=== PATIENT | female | born 1950 | race Caucasian/White ===

== ENCOUNTER 2017-01-10 06:10 | Day surgery (SDC) | payer MEDICARE ==
[2017-01-09 08:31] VITALS: BMI 22.8
[~2017-01-10 06:10] MED LIST: ALPRAZolam 0.25 MG TAB PO PRN; ALPRAZolam 0.5 MG TAB PO PRN; ASPIRIN 325 MG TAB PO STA; ATORVASTATIN 80 MG TAB PO STA; NITROGLYCERIN SL TABS 0.4 MG TAB SUBLINGUAL PRN; SODIUM CHLORIDE 0.9% 1,000 ML in EMPTY BAG 1 BAG IV ONE
[2017-01-10 07:15] LABS: Glucose,Whole Blood 161 mg/dL (75-99)
[2017-01-10] MEDS ORDERED: fentaNYL (PF) 50 MCG/ML 2 ML AMP IV ONE (07:27)
[2017-01-10] MEDS ORDERED: diphenhydrAMINE 50 MG/ML 1 ML VIAL IVP ONE (07:27)
[2017-01-10] MEDS ORDERED: LIDOCAINE 2% INJ 20 MG/ML SQ ONE (07:28)
[2017-01-10] MEDS ORDERED: LIDOCAINE 2% INJ 20 MG/ML (20 ML MDV) ONE (07:28)
[2017-01-10] MEDS: VERAPAMIL SYRINGE (5 MG/10 ML) INTRAARTER ONE ×2 (07:31→07:43)
[2017-01-10 07:35] LABS: Basophils # (A) 0.1 k/uL (0-0.2); Basophils % (A) 1 %; CH 32.3; CHCM 33.7; Eosinophils # (A) 0.2 k/uL (0-0.7); Eosinophils % (A) 1 %; HDW 2.09; HGB 13.7 gm/dL (11.4-16.0); Luc # (Auto) 0.17; Luc % (Auto) 1; Lymphocytes # (A) 1.6 k/uL (1.0-4.8); Lymphocytes % (A) 13 %; MCH 31.3 pg (25.0-35.0); MCHC 32.6 g/dL (31.0-37.0); MCV 96.1 fL (80.0-100.0); Mean Platelet Volume 9.3; Monocytes # (A) 0.8 k/uL (0-1.0); Monocytes % (A) 6 %; Neutrophils # (A) 9.8 k/uL (1.3-7.7); Neutrophils % (A) 78 %; RBC 4.37 m/uL (3.80-5.40); RDW 12.8 % (11.5-15.5); WBC 12.7 k/uL (3.8-10.6); WBC (Perox) 12.49
[2017-01-10] MEDS ORDERED: MIDAZOLAM 2 MG/2 ML VIAL IV ONE (07:41)
[2017-01-10 07:43] LABS: Anion Gap 13 mmol/L; Blood Urea Nitrogen 24 mg/dL (7-17); Calcium 10.1 mg/dL (8.4-10.2); Carbon Dioxide 23 mmol/L (22-30); Chloride 106 mmol/L (98-107); Glucose 156 mg/dL (74-99); Non-African American GFR(MDRD) >60 (>60 ml/min/1.73 sqM); Potassium 3.9 mmol/L (3.5-5.1); Sodium 142 mmol/L (137-145)
[2017-01-10] MEDS ORDERED: BIVALIRUDIN BOLUS 250 MG/50 ML IV ONE (07:50)
[2017-01-10] MEDS ORDERED: BIVALIRUDIN 250 MG in SODIUM CHLORIDE 0.9% 50 ML IV ONE (07:52)
[2017-01-10] MEDS ORDERED: CLOPIDOGREL 75 MG TAB PO ONE (07:56)
[2017-01-10] MEDS ORDERED: NITROGLYCERIN 1000MCG/10ML SYRINGE INTRACORON ONE (08:13)
[2017-01-10] MEDS ORDERED: IOHEXOL 350 MG/ML 125ML BOTTLE INJ ONE (08:15)
[2017-01-10] MEDS ORDERED: MAG HYDROX/AL HYDROX/SIMETH 30 ML CUP PO PRN (08:27)
[2017-01-10] MEDS ORDERED: ATROPINE SULFATE 0.1 MG/ML 10ML SYRINGE IV PRN (08:27)
[2017-01-10] MEDS ORDERED: NITROGLYCERIN SL TABS 0.4 MG TAB SUBLINGUAL PRN (08:27)
[2017-01-10] MEDS ORDERED: RX INFO: IV CONTRAST WAS GIVEN 1 EACH MISC MISCELLANE PRN (08:27)
[2017-01-10] MEDS ORDERED: ZOLPIDEM 5 MG TAB PO PRN (08:27)
[2017-01-10] MEDS ORDERED: FLUTICASONE 50MCG/SPRAY NASAL 16GM EA NOSTRIL PRN (08:28)
[2017-01-10] MEDS ORDERED: LORATADINE 10 MG TAB PO PRN (08:28)
[2017-01-10] MEDS ORDERED: SODIUM CHLORIDE 0.9% 1,000 ML IV SCH (08:30)
[2017-01-10 08:51] LABS: Glucose,Whole Blood 154 mg/dL (75-99)
--- NOTE | 2017-01-10 08:51 | CC ---
DATE OF SERVICE: Mrs. Muñoz is a 66-year-old female with known history of hypertension, hyperlipidemia, chronic tobacco use, and diabetes mellitus, who has been complaining of some dyspnea on exertion, underwent a myocardial perfusion imaging that revealed an inferior wall defect and mildly impaired left ventricular systolic function. In view of that, recommendation made regarding cardiac catheterization. The procedure as well as risks and complications were discussed with the patient who is in full understanding and agreement. PROCEDURE: Patient was brought to the [facility] in fasting semi-sedated state after receiving fentanyl and Benadryl and achieving moderate conscious sedated state, a 6 [place] Citizen sheath was introduced in the right radial artery. Selective right and left coronary angiography was performed using 5 [place] Citizen 3.5 Bend, right Filiberto catheter. Multiple views of the coronary artery including hemiaxial views were obtained. Following that, a 5 [place] Citizen tight pigtail catheter was introduced into the left ventricle in a 30 degree PEPE view of the left ventricle was obtained. Following that, the catheter was removed. Images were reviewed. Of note, patient received 3000 units of intravenous heparin as well as intra-arterial verapamil. FINDINGS: FLUOROSCOPY: There is calcification involving all the coronary arteries. LEFT MAIN: This is a large-size vessel bifurcating into the left circumflex, left anterior descending artery. Left main coronary artery is without any obstructive coronary artery disease. LEFT ANTERIOR DESCENDING ARTERY: This is a large-size vessel bifurcating, it tapers down in the distal third. The proximal segment of the LAD had mild intimal disease of 10% to 20% at the take off of the first septal race car driver. There is an eccentric 50% plaque. The rest of the vessel has mild intimal disease without any evidence of high-grade stenosis. LEFT CIRCUMFLEX: This is a nondominant vessel, giving rise to 3 obtuse marginal branch. The left circumflex has mild intimal disease in the obtuse marginal branch of 20% to 30% without any evidence of high-grade stenosis. RIGHT CORONARY ARTERY: This is a large dominant vessel, bifurcating distally into PDA and posterolateral segment and branches. The right PDA reaches toward the inferoapical wall. The right coronary artery is calcified proximally, has an area of stenosis up to 70% and a long segment. The rest of the vessel has mild intimal disease up to 20% to 30% without any evidence of high-grade stenosis. LEFT VENTRICULOGRAM: Left ventriculogram was performed in 30 degree PEPE view and revealed normal left ventricular size and systolic function. Ejection fraction is 60%. There was no significant mitral regurgitation, evidence of abdominal aortic aneurysm was noted. HEMODYNAMICS: There was no gradient across the aortic valve. The left ventricular end-diastolic pressure was 12 mmHg. CONCLUSION: 1. Calcified coronary arteries. 2. Significant disease in the proximal right coronary artery. 3. Mild disease in the left anterior descending artery and mild disease in the left circumflex. 4. Normal ventricular size and systolic function with evidence of abdominal aortic aneurysm. RECOMMENDATION: In view of finding anatomy, I have recommended proceeding with angioplasty and stenting of the right coronary artery. The procedure as well as risks and complications were discussed with the patient who is in full understanding and agreement.
--- NOTE | 2017-01-10 08:59 | PTCA ---
DATE OF SERVICE: Mrs. Muñoz is a 66-year-old female with known history of hypertension, hyperlipidemia, and diabetes mellitus as well as chronic tobacco use, who had evidence of inferior wall defect with a very poor exercise tolerance. In view of that, she underwent cardiac catheterization, was found to have calcified proximal right coronary artery with significant obstructive disease and based on this findings, recommendation made regarding angioplasty and stenting. The procedure as well as the risks and complications were discussed with the patient who is in full understanding and agreement. PROCEDURE: A 6 [place] 3.5 Bend right FR4 guiding catheter introduced into the system. After cannulating the left coronary ostium, a 0.014 balanced medium weight J-wire was advanced across the lesion, positioned distally. Then a 3.5 x 18 mm Xience Alpine stent was deployed, post dilated at 16 atmospheres. Following that, the balloon was removed and a 4.0 x 8 mm Xience Alpine stent was deployed proximal to the first one and post-dilated at 14 atmospheres. After the last inflation, after appropriate wait, the balloon and the guidewire were removed back into the guiding catheter. Images were obtained and repeated. Those images revealed successful stenting. At that point the guiding catheter, the balloon and the guidewire were removed. The sheath was removed. Hemostasis was obtained with deployment of a TR band. There was no immediate complication. Patient is returned to her room in stable condition. Of note, the patient received Angiomax per protocol as well as oral loading dose of clopidogrel. She had throat discomfort and EKG changes with the inflation that resolved at the end of the procedure. The duration of the procedure at 52 minutes. RESULT: Successful stenting of a long segment of the proximal right coronary artery with reduction in stenosis from 70% to 0%. RECOMMENDATION: Patient will be continued on aspirin, Plavix, beta gentry, Krish inhibitor and statin. The importance of dual antiplatelet treatment was discussed with the patient and her family and they are in full understanding and agreement. MICHELLE
[2017-01-10] MEDS ORDERED: LISINOPRIL 20 MG TAB PO SCH (09:00)
[2017-01-10] MEDS: METOPROLOL SUCCINATE (ER) 25 MG TAB.ER.24H PO SCH (10:21)
--- NOTE | 2017-01-10 10:56 | US ---
EXAMINATION TYPE: US duplex aorta DATE OF EXAM: 01/10/2017 10:37 AM COMPARISON: NONE CLINICAL HISTORY: aaa. Pt had heart cath, possible AAA seen EXAM MEASUREMENTS: Abdominal Aorta: Proximal: 2.6 x 2.0 cm Mid: 1.8 x 1.8 cm Distal: 2.3 x 2.8 cm Bifurcation: FRANKY: 1.2 x 1.2 cm OLLIE: 1.1 x 1.4 cm Aorta visualized and does not measure >3cm, however there appears to be "bulging" at the distal porti on greatest measurement= 2.8 cm IMPRESSION: Ectasia and atheromatous change distal abdominal aorta without distinct aneurysm.
[2017-01-10] MEDS: CHLORTHALIDONE 25 MG TAB PO SCH (11:15)
[2017-01-10] MEDS ORDERED: ACETAMINOPHEN TAB 325 MG TAB ONE (12:23)
[2017-01-10] MEDS ORDERED: ACETAMINOPHEN TAB 325 MG TAB PO PRN (12:24)
[2017-01-10] MEDS ORDERED: ASPIRIN 81 MG CHEW PO SCH (17:00)
[2017-01-10] MEDS ORDERED: ATORVASTATIN 40 MG TAB PO SCH (17:00)
[2017-01-10 17:01] LABS: Glucose,Whole Blood 116 mg/dL (75-99)
[2017-01-10] MEDS: MULTIVITAMINS, THERA 1 EACH TAB PO SCH (17:16)
[2017-01-10] MEDS: PANTOPRAZOLE 40 MG TABLET PO SCH (17:16)
[2017-01-10 21:07] LABS: Glucose,Whole Blood 137 mg/dL (75-99)
[2017-01-11] MEDS ORDERED: LEVOTHYROXINE 50 MCG TAB PO SCH (06:30)
[2017-01-11 06:33] LABS: Glucose,Whole Blood 138 mg/dL (75-99)
[2017-01-11] MEDS: PANTOPRAZOLE 40 MG TABLET PO SCH (06:50)
[2017-01-11 07:50] LABS: Anion Gap 11 mmol/L; Blood Urea Nitrogen 16 mg/dL (7-17); Carbon Dioxide 25 mmol/L (22-30); Chloride 103 mmol/L (98-107); Glucose 128 mg/dL (74-99); Non-African American GFR(MDRD) >60 (>60 ml/min/1.73 sqM); Potassium 3.8 mmol/L (3.5-5.1); Sodium 139 mmol/L (137-145)
[2017-01-11] MEDS: CHLORTHALIDONE 25 MG TAB PO SCH (08:27)
[2017-01-11] MEDS: MULTIVITAMINS, THERA 1 EACH TAB PO SCH (08:28)
[2017-01-11] MEDS: METOPROLOL SUCCINATE (ER) 25 MG TAB.ER.24H PO SCH (08:28)
[2017-01-11 08:33] VITALS: BP 150/7; PULSE 84; RESP 16; TEMP 97.1
[2017-01-11] MEDS ORDERED: ASPIRIN 81 MG CHEW PO SCH (09:00)
[2017-01-11] MEDS ORDERED: cloNIDine HCL 0.1 MG TAB PO SCH (09:00)
[2017-01-11] MEDS ORDERED: LISINOPRIL 20 MG TAB PO SCH (09:00)
[2017-01-11] MEDS ORDERED: ATORVASTATIN 40 MG TAB PO SCH (09:00)
[2017-01-11] MEDS ORDERED: amLODIPine 10 MG TAB PO SCH (09:00)
[2017-01-11] MEDS ORDERED: CLOPIDOGREL 75 MG TAB PO SCH (09:00)
--- NOTE | 2017-01-11 09:14 | PN ---
Mrs. Muñoz is a 66-year-old female with a history of hypertension, hyperlipidemia, chronic tobacco use, who presented with abnormal myocardial perfusion imaging, underwent cardiac catheterization, was found to have significant stenosis involving the proximal right coronary artery, underwent stenting of that vessel. She is doing well this morning. She is denying any chest pain. Her breathing has been stable. She denies any dizziness or palpitation. She denies any nausea. She continues to be on aspirin once a day, Lipitor 40 mg daily, chlorthalidone 25 mg daily, Plavix 75 mg daily, lisinopril 40 mg daily, metoprolol succinate 25 mg daily, Protonix, amlodipine 10 mg daily and clonidine 0.1 mg at bedtime. PHYSICAL EXAMINATION: Blood pressure running in the 120s to 150s with the heart rate in the 80s, afebrile. LUNGS: Clear. HEART: Regular rate and rhythm. S1 and S2, no S3, with systolic murmur at the base. No diastolic murmur. ABDOMEN: Soft, nontender. EXTREMITIES: No edema. Right radial pulse intact. Lab data revealed BUN and creatinine are 16 and 0.55. IMPRESSION: 1. Status post stenting of the right coronary artery. 2. Hypertension. 3. Hyperlipidemia. 4. Chronic tobacco use. 5. Diabetes mellitus. RECOMMENDATIONS: Patient will be discharged home today and followed as an outpatient.
[2017-01-11] MEDS ORDERED: FERROUS SULFATE 325 MG TAB PO SCH (12:00)
== END 2017-01-11 10:50 | disposition home or self-care (01) ==
LOC: CATHCVL 06:10 → 6SEL 08:18 → CATHCVL 01-11 10:50
PROVIDERS: ATTEND Internal Medicine Interventional Cardiology
DX: I25.10 Atherosclerotic heart disease of native coronary artery without angina pectoris (principal); I77.811 Abdominal aortic ectasia; R94.39 Abnormal result of other cardiovascular function study; E78.2 Mixed hyperlipidemia; I10 Essential (primary) hypertension; E11.9 Type 2 diabetes mellitus without complications; R00.2 Palpitations; F17.210 Nicotine dependence, cigarettes, uncomplicated; E78.00 Pure hypercholesterolemia, unspecified; Z79.84 Long term (current) use of oral hypoglycemic drugs; Z79.82 Long term (current) use of aspirin; Z79.51 Long term (current) use of inhaled steroids; Z79.899 Other long term (current) drug therapy; Z88.2 Allergy status to sulfonamides
CPT/HCPCS: 93458; 85347; 80048 ×2; 85025; 93979; 99152; 99153 ×2; C9600; C1769 ×2; C1894; C1887; C1874; J2001; J2250; J1200; J3010; J0583; J1644; Q9967

== ENCOUNTER → 2018-07-24 | Day surgery (SDC) | payer MEDICARE ==
[2018-07-17 11:13] VITALS: BMI 26.5
[~2018-07-24] MED LIST changes: +ACETAMINOPHEN TAB 325 MG TAB PO PRN; +ACETAMINOPHN PO SCH; -ALPRAZolam 0.5 MG TAB PO PRN; +ASPIRIN-ACET-CAFF 250-250-65MG 1 EACH TAB PO PRN; +ATORVASTATIN 20 MG TAB PO SCH; -ATORVASTATIN 80 MG TAB PO STA; +CARVEDILOL 12.5 MG TAB PO SCH; +CLOPIDOGREL 75 MG TAB PO SCH; +FLUTICASONE 50MCG/SPRAY NASAL 16GM EA NOSTRIL PRN; +FOLIC PO SCH; +GUAIFEN PO SCH; +HEPARIN SODIUM 1,000 UN/ML (10ML VL) IV ONE; +HEPARIN SODIUM 1,000 UN/ML (10ML VL) ONE; +IOPAMIDOL-370 125ML BTL INJ ONE; +IRON PO SCH; +LEVOTHYROXINE 50 MCG TAB PO SCH; +LIDOCAINE 1% INJ 10MG/ML (20 ML MDV) SQ ONE; +LIDOCAINE 2% INJ 20 MG/ML SQ ONE; +LUTEIN PO SCH; +MULTIVIT MIN PO SCH; +NON-FORMULARY DRUG (Aspirin [Adult Low Dose Aspirin Ec] 81 MG) PO SCH; +NON-FORMULARY DRUG (Lisinopril [Lisinopril] 40 MG) PO SCH; +PHENYLEPH PO SCH; +RX INFO: IV CONTRAST WAS GIVEN 1 EACH MISC MISCELLANE PRN; +SODIUM CHLORIDE 0.9% 1,000 ML IV SCH; +VERAPAMIL SYRINGE (5 MG/10 ML) INTRAARTER ONE; +[UNRECOGNIZED DRUG - OTHER] PO SCH; +[UNRECOGNIZED DRUG - OTHER] PO SCH; +amLODIPine 10 MG TAB PO SCH; +fentaNYL (PF) 50 MCG/ML 2 ML AMP IV ONE; +fentaNYL (PF) 50 MCG/ML 2 ML AMP ONE; +hydrALAZINE HCL 50 MG TAB PO SCH
[2018-07-24 07:02] VITALS: RESP 18; TEMP 97.8
[2018-07-24 07:06] LABS: Glucose,Whole Blood 184 mg/dL (75-99)
--- NOTE | 2018-07-24 09:54 | US ---
EXAMINATION TYPE: US duplex aorta DATE OF EXAM: 07/24/2018 COMPARISON: NONE CLINICAL HISTORY: AAA. EXAM MEASUREMENTS: Abdominal Aorta: Proximal: 1.4 X 1.8 CM Mid: 2.3 X 2.1 CM Distal: 2.2 X 1.9 Bifurcation: OBSCURED IMPRESSION: Ectatic areas at mid and distal aorta, no definitive aneurysm
[2018-07-24 13:42] VITALS: BP 148/72; PULSE 77
--- NOTE | 2018-07-24 14:24 | CC ---
CARDIAC CATHETERIZATION REPORT Mrs. Muñoz is a 67-year-old female with known history of coronary artery disease, status post percutaneous revascularization of her right coronary artery in December 2016, who has been complaining of progressive dyspnea. She had a stress test that raised the possibility of apical ischemia. In view of that, recommendation made regarding cardiac catheterization, the procedures, risks and complications were discussed with the patient who is in full understanding and agreement. PROCEDURE: Patient was brought to [facility] in a fasting semi-sedated state after receiving fentanyl and Benadryl and achieving moderate conscious sedated state. Using Xylocaine anesthesia and Seldinger technique, a 6-[place] sheath was introduced in the right radial artery. Selective right and left coronary angiography was performed using 5- [place] 3.5 bend right and left Filiberto catheter. Multiple views of coronary artery including hemiaxial views were obtained. Following that, a 5-[place] tight pigtail catheter was introduced in the left ventricle and a 30 degree PEPE view of the left ventricle was obtained. Following that, catheter and sheath were removed, hemostasis was obtained with deployment of a TR band. There was no immediate complication. Patient is returned to her room in stable condition. Of note, the patient received 4000 units of intravenous heparin. FINDINGS: FLUOROSCOPY: There is calcification involving all the coronary arteries. LEFT MAIN: This is a large-sized vessel bifurcating into left circumflex, left anterior descending artery. The left main coronary artery has no evidence of high- grade stenosis. LEFT ANTERIOR DESCENDING ARTERY: This is a large size vessel that tapers down in distal third, giving rise to two diagonal branches. Proximally, the LAD has a 20% to 30% plaque. There is another plaque after the takeoff of the first septal stripper and opaquer apprentice by 30%. The rest of the vessel has no high-grade stenosis. LEFT CIRCUMFLEX: This is a nondominant vessel giving rise to three obtuse marginal branches. The first obtuse marginal branch has a tubular lesion of about 50% proximally. The rest of the vessel has no high-grade stenosis. RIGHT CORONARY ARTERY: This is a large dominant vessel, bifurcating into PDA and posterolateral segment branches, tortuous proximally, has a superior takeoff. The right coronary artery stented segment is patent with mild in-stent restenosis of 20%- 30%. There is mild plaque distally of 20% - 30%. The rest of the vessel has no high- grade stenosis. LEFT VENTRICULOGRAM: Left ventriculogram is performed in 30 degree PEPE view and revealed normal left ventricular size and systolic function. Ejection fraction is 60%. There was arrhythmia induced mitral regurgitation. Severe mitral antral calcification was noted. A suggestion of abdominal aortic aneurysm was noted. HEMODYNAMICS: There was no gradient across the aortic valve. The left ventricular end-diastolic pressure was 16 mmHg. CONCLUSION: 1. Calcified coronary arteries. 2. Mild to moderate triple-vessel coronary artery disease with no significant progression in the LAD and left circumflex compared to December 2016. 3. Patent stent of the RCA. 4. Normal left ventricular size and systolic function. 5. Suggestion of abdominal aortic aneurysm. RECOMMENDATION: In view of finding anatomy, I would recommend continue medical therapy. An ultrasound of the abdomen will be obtained to evaluate her abdominal aorta. Those findings and recommendation were discussed with the patient and her family who are in full understanding and agreement. Duration of the procedure is 20 minutes. MMODL / IJN: [id number] /
== END | disposition home or self-care (01) ==
LOC: CATHCVL 06:12
PROVIDERS: ATTEND Internal Medicine Interventional Cardiology
DX: I25.10 Atherosclerotic heart disease of native coronary artery without angina pectoris (principal); I77.819 Aortic ectasia, unspecified site; R94.39 Abnormal result of other cardiovascular function study; I10 Essential (primary) hypertension; E78.2 Mixed hyperlipidemia; E11.9 Type 2 diabetes mellitus without complications; F17.211 Nicotine dependence, cigarettes, in remission; Z95.5 Presence of coronary angioplasty implant and graft; Z79.02 Long term (current) use of antithrombotics/antiplatelets; Z79.82 Long term (current) use of aspirin; Z79.84 Long term (current) use of oral hypoglycemic drugs; Z79.899 Other long term (current) drug therapy; Z79.890 Hormone replacement therapy; Z88.2 Allergy status to sulfonamides
CPT/HCPCS: 93458; 93979; C1894; C1769; J2001; J3010; J1644; Q9967